=== PATIENT | female | born 1985 | race Two or more races ===

== ENCOUNTER 2019-12-11 06:17 | Day surgery (SDC) | payer OTHER ==
[~2019-12-11] VITALS: Ht 165.1 cm; Wt 99.8 kg
[2019-12-11] VITALS (8 sets, daily range): BP systolic 104–134; BP diastolic 54–74
[~2019-12-11 06:17] MED LIST: ALLEGRA ALLERG180 M1 PO; IBUPROFEN600 M1 ORAL; NORCO 5-325 TA1 EAC1 ORAL; ceFAZolin 1gm IVPB IVPB ONE; celeBREX 200mg Cap **SURGERY PATIENTS ONLY ORAL ONE; oxyCONTIN 20mg tab ORAL ONE
--- NOTE | 2019-12-11 07:29 | Pre-Procedure Note/Attestation ---
Pre-Procedure Note/Attestation Complete Prior to Procedure Planned Procedure: right Procedure Narrative: knee diagnostic arthroscopy, possible synovectomy,possible chondroplasty Indications for Procedure Pre-Operative Diagnosis: right knee internal drangment Attestation I attest that I discussed the nature of the procedure; its benefits; risks and complications; and alternatives (and the risks and benefits of such alternatives), prior to the procedure, with the patient (or the patient's legal door to door sales representative). I attest that, if there was a reasonable possibility of needing a blood transfusion, the patient (or the patient's legal door to door sales representative) was given the [facility] standardized written summary, pursuant to the [place] Blood Safety Act ([place] Health and Safety Code # 1645, as amended). I attest that I re-evaluated the patient just prior to the surgery and that there has been no change in the patient's H&P, except as documented below: Dinh Hernandez MD Dec 11, 2019 07:29
--- NOTE | 2019-12-11 07:29 | Operative Note - PDOC ---
Operative Note Operative Note Pre-op Diagnosis: right knee internal drangment Procedure: see op report Post-op Diagnosis: same as pre-op plus Operative Findings: consistent w/pre-op dx studies Anesthesia: MAC Specimen: none Complications: none Condition: stable Estimated Blood Loss: none Implant(s) used?: No Dinh Hernandez MD Dec 11, 2019 07:29
[2019-12-11] MEDS ORDERED: HYDROcodone/Acetamin 5/325 tab ORAL PRN ×2 (07:30→09:00)
[2019-12-11] MEDS ORDERED: HYDROmorphone 1mg/ml Carpuject SUBQ PRN (07:30)
[2019-12-11] MEDS ORDERED: Tylenol #3 tab (300mg/30mg) ORAL PRN (07:30)
[2019-12-11] MEDS ORDERED: Ketorolac 30mg Inj ONE (08:28)
[2019-12-11] MEDS ORDERED: Duramorph PF 5mg/10ml amp ONE (08:28)
[2019-12-11] MEDS ORDERED: Lidocaine 1% 10mg/ml/Epi 0.005mg/ml 30ml vial INJ ONE (08:28)
[2019-12-11] MEDS ORDERED: Kenalog-40 1ml Vial ONE (08:28)
[2019-12-11] MEDS ORDERED: EPINEPHrine 1mg/1ml Amp ONE (08:28)
[2019-12-11] MEDS ORDERED: LR 1000ml ONE (08:30)
[2019-12-11] MEDS ORDERED: Lidocaine 1% MPF 10mg/ml 5ml ONE (08:33)
[2019-12-11] MEDS ORDERED: Sodium Chloride 10ml vial INJ ONE (08:33)
[2019-12-11] MEDS: Bupivacaine 0.5% Inj 30 ml vial INJ ONE ×2 (08:50→08:57)
[2019-12-11] MEDS ORDERED: NS Irrig 2000ml IRRIG ONE (08:50)
--- NOTE | 2019-12-11 08:59 | Anethesia Preoperative Eval ---
Anesthesia Pre-op PMH/ROS General Date of Evaluation: Dec 11, 2019 Time of Evaluation: 08:32 Anesthesiologist: Aleida ASA Score: ASA 2 Mallampati Score Class I : Soft palate, uvula, fauces, pillars visible Class II: Soft palate, uvula, fauces visible Class III: Soft palate, base of uvula visible Class IV: Only hard plate visible Mallampati Classification: Class III Surgeon: David Diagnosis: R Knee Pain Surgical Procedure: R Knee Arthroscopy Anesthesia History: none Family History: no anesthesia problems Allergies: Coded Allergies: GABAPENTIN (Verified Allergy, Intermediate, RASH , 12/11/19) Medications: see eMAR Patient NPO?: Yes Past Medical History Cardiovascular: Reports: HTN Pulmonary: Reports: asthma - Bronchitis Other: obesity - BMI 38 Anesthesia Pre-op Phys. Exam Physician Exam Last Vital Signs Date Time Temp Pulse Resp B/P (MAP) Pulse Ox O2 Delivery O2 Flow Rate FiO2 12/11/19 07:02 97.3 80 18 134/74 98 Room Air Constitutional: NAD Neurologic: CN 2-12 intact Cardiovascular: RRR Respiratory: CTA Gastrointestinal: S/NT/ND Airway Exam Mallampati Score: Class III MO: limited ROM: limited Teeth: missing, intact Anesthesia Pre-op A/P Labs Urine Test Test 12/11/19 06:30 Urine HCG, Qualitative Negative (NEGATIVE) Pre-Antibiotics Dru Grams Ancef IV Given Within 1 Hr of Incision: Yes Time Given: 08:38 Ezra Shin MD Dec 11, 2019 08:59
[2019-12-11] MEDS ORDERED: Metoclopramide 10mg/2ml Inj IVP PRN (09:00)
[2019-12-11] MEDS ORDERED: DiphenhydrAMINE 50mg/ml Inj IVP PRN (09:00)
[2019-12-11] MEDS ORDERED: LORazepam Inj 2mg/ml 1ml IV PRN (09:00)
[2019-12-11] MEDS ORDERED: HYDROcodone/Acetamin 7.5/325 tab ORAL PRN (09:00)
[2019-12-11] MEDS ORDERED: LR 1000ml 1,000 ML IVLG SCH (09:00)
[2019-12-11] MEDS ORDERED: oxyCODONE HCL/Acetaminophen 5/325mg ORAL PRN (09:00)
[2019-12-11] MEDS ORDERED: Meperidine 25mg/0.5ml Inj (FOR RIGORS ONLY) IV PRN (09:00)
[2019-12-11] MEDS ORDERED: Atropine Sulfate 0.4mg/ml inj IVP PRN (09:00)
[2019-12-11] MEDS ORDERED: Ketorolac 30mg Inj IV PRN ×2 (09:00)
[2019-12-11] MEDS ORDERED: Hydromorphone 0.5mg/0.5ml inj IVP PRN (09:00)
[2019-12-11] MEDS ORDERED: Midazolam 2mg/2ml Inj IVP PRN (09:00)
[2019-12-11] MEDS ORDERED: fentaNYL 100 mcg/2 mL IV PRN (09:00)
[2019-12-11] MEDS ORDERED: Labetalol 5mg/ml 20ml vial IV PRN (09:00)
--- NOTE | 2019-12-11 09:00 | Immediate Post-Op Evaluation ---
Immediate Post-Op Evalulation Immediate Post-Op Evalulation Procedure: R Knee Arthroscopy Date of Evaluation: Dec 11, 2019 Time of Evaluation: 09:32 IV Fluids: 600 LR Blood Products: 0 Estimated Blood Loss: 10 Urinary Output: 0 Blood Pressure Systolic: 122 Blood Pressure Diastolic: 56 Pulse Rate: 106 Respiratory Rate: 16 O2 Sat by Pulse Oximetry: 100 Temperature (Fahrenheit): 97.2 Pain Score (1-10): 2 Nausea: No Vomiting: No Complications 0 Patient Status: awake, reacts, patent, none Hydration Status: adequate Dru Grams Ancef IV Given Within 1 Hr of Incision: Yes Time Given: 08:38 Ezra Shin MD Dec 11, 2019 09:00
--- NOTE | 2019-12-11 09:01 | 48 Hour Post Anesthesia Eval ---
Post Anesthesia Evaluation Procedure: R Knee Arthroscopy Date of Evaluation: Dec 11, 2019 Time of Evaluation: 11:43 Blood Pressure Systolic: 123 0: 76 Pulse Rate: 82 Respiratory Rate: 18 Temperature (Fahrenheit): 98 O2 Sat by Pulse Oximetry: 99 Airway: patent Nausea: No Vomiting: No Pain Intensity: 0 Hydration Status: adequate Cardiopulmonary Status: Stable Mental Status/LOC: patient returned to baseline Follow-up Care/Observations: 0 Post-Anesthesia Complications: 0 Follow-up care needed: ready to discharge Ezra Shin MD Dec 11, 2019 09:01
--- NOTE | 2019-12-11 11:14 | Operative Note - Dictated ---
DATE OF OPERATION: 12/11/2019 PREOPERATIVE DIAGNOSES: 1. Right knee internal derangement secondary to chondral damage. 3. Hypertrophic fat pad. POSTOPERATIVE DIAGNOSES: 1. Grade 2 chondral damage, medial and lateral patellar facet. 2. Hypertrophic synovial tissue, medial and lateral patellofemoral compartment. PROCEDURE: 1. Right knee diagnostic arthroscopy and synovectomy of medial, lateral, patellofemoral compartment. 2. Chondroplasty of patellofemoral compartment. SURGEON: Dinh Hernandez MD. ANESTHESIA: MAC with local. INDICATION FOR PROCEDURE: The patient is a pleasant female with progressive anterior knee pain. She had an MRI, which showed some evidence of significant bone bruise. The patient failed conservative treatment, continued to have knee pain, elected to undergo right knee diagnostic arthroscopy and possible chondroplasty, synovectomy. Risks, limitations, expectations, and complications were discussed in detail. All questions addressed. DESCRIPTION OF PROCEDURE: After informed consent was obtained, the patient was brought to the operating room, and placed under general anesthesia. Left leg was prepped and draped in sterile manner. Time-out was performed. Inferolateral stab incision was then made. Trocar was introduced in the knee joint. There was hypertrophic synovial tissue making visualization of patellofemoral compartment somewhat difficult. Medial gutter was free from loose bodies. Medial compartment was entered. Medial working portal was established. The posterior part of the meniscus as well as the cartilage was probed, noted to be intact. Synovectomy was started from the anterior compartment, medial compartment extending to intercondylar notch into lateral compartment. ACL was probed, noted to be intact. Lateral compartment was entered, free of meniscal chondral damage. Camera was repositioned in the patellofemoral compartment. Synovectomy and excision of fat pad was completed. Once this was done, better visualization of patellofemoral compartment was obtained, showed grade 2 chondral damage in the medial patella and lateral patellar facet. Gentle chondroplasty was performed. Once that was done, the instruments were removed. Portal sites were closed with 3-0 Monocryl sutures. Steri-Strips and a sterile dressing were applied. ESTIMATED BLOOD LOSS: None. COMPLICATIONS: None. SPECIMENS: None. IMPLANTS: None. Dinh Hernandez M.D. DR: THAO JOB#: [id number] CC: IFRAH
[2019-12-11] MEDS ORDERED: D5 1/2NS 1,000 ML IV SCH (13:00)
== END 2019-12-11 11:00 | disposition home or self-care (01) ==
LOC: SUR 06:17
DX: M67.261 Synovial hypertrophy, not elsewhere classified, right lower leg (principal); I10 Essential (primary) hypertension; E66.9 Obesity, unspecified; Z68.36 Body mass index [BMI] 36.0-36.9, adult
CPT/HCPCS: 29876; 29999; 81025; 94003; J0171; J0690; J1100; J1885; J2250; J2405; J2704; J3301; J3490; J7120; U0002; 94150